=== PATIENT | female | born 2000 | race Caucasian/White ===

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

== ENCOUNTER → 2022-05-18 | Outpatient (CLI) | payer BC ==
--- NOTE | 2022-05-21 08:38 | Diagnostic Imaging Report ---
PROCEDURE: Pelvic comp/transvaginal sonogram. TECHNIQUE: Complete transabdominal and transvaginal pelvic ultrasound was performed. In addition, limited pelvic Doppler was performed. INDICATION: Pelvic pain. Uterus is anteverted measuring 5.8 x 2.7 x 3.6 cm. Endometrium is 4 mm in thickness. No myometrial mass is detected. There is a small cervical nabothian cyst. Right ovary measures 3.5 x 2.3 x 2.9 cm. Right ovary does contain multiple follicles. There is blood flow to the right ovary. Left ovary was poorly visualized. There is trace free fluid in posterior cul-de-sac. IMPRESSION: Nonvisualized left ovary. The study is otherwise unremarkable. Dictated by: Dictated on workstation # [id number]
== END ==
LOC: RAD 14:48
PROVIDERS: ATTEND Obstetrics & Gynecology
DX: R10.2 Pelvic and perineal pain (principal)
CPT/HCPCS: 76830; 76856